=== PATIENT | male | born 1995 | race Caucasian/White ===

== ENCOUNTER 2017-11-26 16:52 | Emergency (ER) | payer MEDICAID ==
[~2017-11-26] VITALS: Ht 175.3 cm; Wt 87.9 kg
[2017-11-26 16:59] VITALS: BP 145/78
[2017-11-26] MEDS ORDERED: ALBUTEROL/IPRATROPIUM 2.5MG/0.5MG, 3 ML NPPB PRN (17:30)
[2017-11-26] MEDS ORDERED: ALBUTEROL SULFATE 2.5 MG/3 ML ONE (17:33)
[2017-11-26] MEDS ORDERED: ALBU8.5H8 INH (17:42)
== END 2017-11-26 18:13 | disposition home or self-care (01) ==
LOC: ED 18:07
DX: J45.31 Mild persistent asthma with (acute) exacerbation (principal); J45.21 Mild intermittent asthma with (acute) exacerbation
CPT/HCPCS: 71046; 94640; 99284